=== PATIENT | female | born 1980 | race African-American/Black ===

== ENCOUNTER 2016-12-22 02:40 | Emergency (ER) | payer MEDICARE, MEDICAID ==
[~2016-12-22] VITALS: Ht 170.2 cm; Wt 100.0 kg
[2016-12-22 04:00] LABS: CLARITY URINE CLEAR (CLEAR); COLOR URINE YELLOW (YELLOW); GLUCOSE URINE NEGATIVE (NEGATIVE); KETONES URINE NEGATIVE (NEGATIVE); LEUKOCYTE ESTERASE URINE NEGATIVE (NEGATIVE); NITRITE URINE NEGATIVE (NEGATIVE); OCCULT BLOOD URINE NEGATIVE (NEGATIVE); PROTEIN URINE NEGATIVE (NEGATIVE); SPECIFIC GRAVITY URINE 1.016 (1.005-1.030); UROBILINOGEN URINE 0.2 E.U./dL (0.2-1.0)
[2016-12-22 05:45] VITALS: BP 120/85
== END 2016-12-22 05:51 | disposition home or self-care (01) ==
LOC: ER 02:40
DX: R35.0 Frequency of micturition (principal)
CPT/HCPCS: 81003; 81025; 82962; 99283

== ENCOUNTER 2017-01-15 00:45 | Emergency (ER) | payer MEDICARE, MEDICAID ==
[~2017-01-15] VITALS: Ht 167.6 cm; Wt 91.0 kg
[2017-01-15 01:33] VITALS: BP 119/88
== END 2017-01-15 04:20 | disposition left against medical advice (07) ==
LOC: ER 00:45
DX: J00 Acute nasopharyngitis [common cold] (principal); R05 Cough; J02.9 Acute pharyngitis, unspecified; Z53.21 Procedure and treatment not carried out due to patient leaving prior to being seen by health care provider

== ENCOUNTER 2017-01-18 01:59 | Emergency (ER) | payer MEDICARE, MEDICAID ==
[~2017-01-18] VITALS: Ht 170.2 cm; Wt 104.2 kg
[2017-01-18 02:35] VITALS: BP 124/68
== END 2017-01-18 06:49 | disposition left against medical advice (07) ==
LOC: ER 04:23
DX: Z53.21 Procedure and treatment not carried out due to patient leaving prior to being seen by health care provider (principal)

== ENCOUNTER 2017-01-31 15:31 | Emergency (ER) | payer MEDICARE, MEDICAID ==
[~2017-01-31] VITALS: Ht 172.7 cm; Wt 100.0 kg
[2017-01-31 17:49] VITALS: BP 115/86
== END 2017-01-31 19:06 | disposition home or self-care (01) ==
LOC: ER 18:29
DX: N89.8 Other specified noninflammatory disorders of vagina (principal); Z88.1 Allergy status to other antibiotic agents; Z88.2 Allergy status to sulfonamides
CPT/HCPCS: 81025; 99283

== ENCOUNTER 2017-09-28 13:46 | Emergency (ER) | payer MEDICARE, MEDICAID ==
[~2017-09-28] VITALS: Ht 167.6 cm; Wt 94.0 kg
[2017-09-28 13:55] VITALS: BP 174/83
== END 2017-09-28 18:30 | disposition left against medical advice (07) ==
LOC: ER 17:15
DX: R21 Rash and other nonspecific skin eruption (principal); L98.8 Other specified disorders of the skin and subcutaneous tissue
CPT/HCPCS: 99281

== ENCOUNTER 2017-11-14 16:05 | Emergency (ER) | payer MEDICARE, MEDICAID ==
[~2017-11-14] VITALS: Ht 165.1 cm; Wt 89.0 kg
[2017-11-14] MEDS ORDERED: DEXAMETHASONE 10 MG/ML VIAL IM ONE (19:30)
[2017-11-14 20:21] VITALS: BP 132/92
== END 2017-11-14 20:25 | disposition home or self-care (01) ==
LOC: ER 16:05
DX: B35.4 Tinea corporis (principal)
CPT/HCPCS: 96372; 99283; J1100